=== PATIENT | male | born 1990 | race African-American/Black ===

== ENCOUNTER 2018-04-15 10:17 | Emergency (ER) | payer OTHER ==
[2018-04-15] MEDS ORDERED: Ketorolac 60 MG/2 ML SDV IM ONE (10:37)
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
--- NOTE | 2018-04-15 11:31 | CT ---
EXAMINATION: CT thoracic and lumbar spine HISTORY: Pain COMPARISON: None TECHNIQUE: Axial CT images obtained through the thoracic and lumbar spine without contrast. Coronal a nd sagittal reconstructions obtained. FINDINGS: Thoracic spine: Thoracic spinal alignment is normal. The vertebral body heights and disc spaces appea r well-maintained. There is no fracture or acute osseous abnormality. Bone mineralization is normal. Mild dependent atelectasis noted within the lungs. Lumbar spine: Bilateral spondylolysis is noted at L5 which appear relatively corticated. There is no spondylolisthesis. The remaining osseous structures within the lumbar spine and visualized pelvis laurie ear intact. SI joints are symmetric. Bone mineralization is otherwise normal. The visualized retroper itoneal structures appear normal. IMPRESSION: 1. Grossly unremarkable thoracic spine. 2. Likely chronic spondylolysis bilaterally at L5 without significant spondylolisthesis.
== END 2018-04-15 12:15 | disposition home or self-care (01) ==
LOC: EDSEX 10:17 → MW.ED 10:17
DX: S29.012A Strain of muscle and tendon of back wall of thorax, initial encounter (principal); S39.012A Strain of muscle, fascia and tendon of lower back, initial encounter; V89.2XXA Person injured in unspecified motor-vehicle accident, traffic, initial encounter
CPT/HCPCS: 72128; 72131; 96372; 99283; J1885

== ENCOUNTER 2018-04-19 14:35 | Emergency (ER) | payer OTHER ==
[2018-04-19] MEDS ORDERED: Ketorolac 60 MG/2 ML SDV IM ONE (15:29)
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
== END 2018-04-19 17:26 | disposition home or self-care (01) ==
LOC: MW.ED 14:35
DX: M54.6 Pain in thoracic spine (principal); R20.2 Paresthesia of skin; R51 Headache; M54.2 Cervicalgia; Z87.891 Personal history of nicotine dependence
CPT/HCPCS: 70450; 72125; 96372; 99283; J1885; J2360